=== PATIENT | male | born 1970 | race Hispanic/Latino ===

== ENCOUNTER 2023-12-31 10:51 | Emergency (ER) | payer MEDICARE ==
[2023-12-31 11:24] LABS: #Basophils Less than 0.03 10x3/uL (0.0-0.2); #Eosinphils Less than 0.03 10x3/uL (0.0-0.7); %Basophils 0.3 % (0.0-1.0); %Eosinophils 0.3 % (0.0-10.0); %Lymphocytes 9.4 % (21.0-51.0); %Monocytes 4.8 % (0.0-10.0); %Neutrophils 84.9 % (42.0-75.0); Hematocrit 40.2 % (42.0-52.0); Hemoglobin 13.3 g/dL (14.0-18.0); Mean Corpuscular HGB CONC 33.1 g/dL (32.0-36.0); Mean Corpuscular Hemoglobin 27.9 pg (27.0-31.0); Mean Corpuscular Volume 84.3 fL (78.0-98.0); Mean Platelet Volume 9.6 fL (7.4-10.4); Platelet Count 261 10x3/uL (130-400); RBC Distribution Width 14.6 % (11.5-14.5); Red Blood Cell (RBC) Count 4.77 mill/uL (4.70-6.10)
[2023-12-31 11:43] LABS: ALT (SGPT) 12 U/L (8-55); AST (SGOT) 18 U/L (5-34); Albumin 3.7 g/dL (3.5-5.0); Alkaline Phosphatase 105 U/L (40-110); Anion Gap 17 mmol/L (10-20); BUN (Urea Nitrogen) 31 mg/dL (8.4-25.7); Bilirubin, Total 0.4 mg/dL (0.2-1.2); CK (CPK) 54 U/L (30-200); Calc. Creatinine Clearance 0 mL/min (70-130); Calcium 9.5 mg/dL (7.8-10.44); Carbon Dioxide 26 mmol/L (22-29); Chloride 103 mmol/L (98-107); Estimated GFR 64; Globulin 3.6 g/dL (2.4-3.5); Glucose 135 mg/dL (70-105); Lipase 21 U/L (8-78); Protein, Total 7.3 g/dL (6.0-8.3); Sodium 142 mmol/L (136-145)
== END 2023-12-31 12:35 | disposition home or self-care (01) ==
LOC: ERS 10:51
DX: E86.0 Dehydration (principal); N17.9 Acute kidney failure, unspecified; E11.9 Type 2 diabetes mellitus without complications
CPT/HCPCS: 80053; 82550; 83690; 85025; 96360

== ENCOUNTER 2024-01-03 12:35 | Outpatient (CLI) | payer MEDICARE | END 2024-01-03 12:36 | disposition home or self-care (01) | LOC: RAD 12:35 | PROVIDERS: ATTEND Internal Medicine | DX: R05.9 Cough, unspecified (principal) | CPT/HCPCS: 71046 ==

== ENCOUNTER 2025-03-28 20:13 | Emergency (ER) | payer MEDICARE ==
[2025-03-28] MEDS ORDERED: Ketorolac Tromethamine 30 MG (1 mL) VIAL ONE (21:08)
[2025-03-28 21:30] LABS: #Basophils 0.03 10x3/uL (0.0-0.2); #Eosinophils 0.18 10x3/uL (0.0-0.7); #Monocytes 0.53 10x3/uL (0.11-0.59); #Neutrophils 4.56 10x3/uL (1.40-6.50); %Basophils 0.5 % (0.0-1.0); %Eosinophils 2.9 % (0.0-10.0); %Lymphocytes 15.3 % (21.0-51.0); %Monocytes 8.5 % (0.0-10.0); %Neutrophils 72.6 % (42.0-75.0); Hematocrit 32.5 % (42.0-52.0); Hemoglobin 10.4 g/dL (14.0-18.0); Mean Corpuscular Hemoglobin 27.2 pg (27.0-31.0); Mean Corpuscular Volume 84.9 fL (78.0-98.0); Platelet Count 241 10x3/uL (130-400); Red Blood Cell (RBC) Count 3.83 mill/uL (4.70-6.10); White Blood Cell (WBC) Count 6.27 10x3/uL (4.8-10.8)
[2025-03-28 21:47] LABS: ALT (SGPT) 12 U/L (Less than 45); AST (SGOT) 21 U/L (11-34); Albumin 3.7 g/dL (3.1-4.5); Alkaline Phosphatase 90 U/L (40-110); Anion Gap 13 mmol/L (10-20); BUN (Urea Nitrogen) 22 mg/dL (8.4-25.7); Bilirubin, Total 0.2 mg/dL (0.3-1.2); Calc. Creatinine Clearance 0 mL/min (70-130); Calcium 8.9 mg/dL (7.8-10.44); Carbon Dioxide 24 mmol/L (22-29); Chloride 107 mmol/L (98-107); Globulin 2.5 g/dL (2.4-3.5); Glucose 113 mg/dL (70-105); Lipase 58 U/L (8-78); Potassium 3.4 mmol/L (3.5-5.1); Sodium 141 mmol/L (136-145)
== END 2025-03-28 22:06 | disposition home or self-care (01) ==
LOC: ERS 20:13
DX: M25.512 Pain in left shoulder (principal); E11.9 Type 2 diabetes mellitus without complications; R29.700 NIHSS score 0; Z79.899 Other long term (current) drug therapy
CPT/HCPCS: 73030; 80053; 83690; 84484; 85025; 93005; J1885; 36415; 96372; 99283